=== PATIENT | male | born 1965 | race Caucasian/White ===

== ENCOUNTER 2017-09-30 11:04 | Emergency (ER) | payer MEDICAID ==
[2017-09-30 12:07] LABS: BASO % 0.8 % (0.0-2.0); EOS # 0.1 K/uL (0.0-0.7); EOS % 2.4 % (0.0-4.0); HEMOGLOBIN 17.2 g/dL (12.0-18.0); LYMPH % 41.3 % (20.0-40.0); MEAN CORPUSCULAR HEMOGLOBIN 31.1 pg (27.0-31.0); MEAN CORPUSCULAR HGB CONC 34.6 g/dL (33.0-37.0); MEAN PLATELET VOLUME 9.5 fL (7.2-11.7); MONO # 0.4 K/uL (0.0-0.8); MONO % 7.8 % (0.0-10.0); NEUT # 2.3 K/uL (1.8-7.0); NEUT % 47.7 % (50.0-75.0); NRBC % 0.2 % (0.0-2.0); RBC 5.53 Mil/uL (4.40-5.90); RED CELL DISTRIBUTION WIDTH 14.6 % (11.5-14.5); WHITE BLOOD COUNT 4.9 K/uL (4.8-10.8)
[2017-09-30 12:20] LABS: ALB/GLOB RATIO 1.1 (1.0-2.1); ALBUMIN 3.9 g/dL (3.5-5.0); ALT/SGPT 37 U/L (21-72); AMYLASE 85 U/L (30-110); AST/SGOT 21 U/L (17-59); BLOOD UREA NITROGEN 11 mg/dL (9-20); CALCIUM 11.8 mg/dl (8.6-10.4); GFR AFRICAN-AMERICAN > 60; GFR NON-AFRICAN AMERICAN > 60
[2017-09-30 12:27] LABS: URINE BILIRUBIN NEGATIVE (NEGATIVE); URINE BLOOD 1+ (NEGATIVE); URINE CLARITY Clear (Clear); URINE COLOR Straw (YELLOW); URINE GLUCOSE (UA) NORMAL (Normal); URINE LEUKOCYTE ESTERASE NEG Leu/uL (Negative); URINE PROTEIN NEGATIVE (NEGATIVE); URINE UROBILINOGEN NORMAL mg/dL (0.2-1.0)
--- NOTE | 2017-09-30 13:05 | C.PDOC ---
History Of Present Illness 52-year-old male, presents to the emergency department with complaints of right sided back pain for the past month. Patient states that he has a Hx of kidney stones with lithotripsy last year and stent. States he went to see Dr Samaniego last week and was told to come in for further evaluation. Pt had CT 2 months ago , showing multiple small calculi b/l. Denies hematuria, dysuria, abdominal pain , n/v, rash, fever, chest pain or any other associated symptoms. 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[employer]) History/Exam Limitations: no limitations Current Symptoms Are (Timing): Still Present Severity: Moderate Past Medical History Reviewed: Historical Data, Nursing Documentation, Vital Signs Vital Signs: Last Vital Signs Temp 97.8 F 09/30/17 13:07 Pulse 60 09/30/17 13:07 Resp 18 09/30/17 13:07 BP 145/89 09/30/17 13:07 Pulse Ox 100 09/30/17 13:50 - Medical History PMH: HTN, Kidney Stones, Chronic Kidney Disease Family History: States: No Known Family Hx - Social History Hx Tobacco Use: No Hx Alcohol Use: No Hx Substance Use: No - Immunization History Hx Tetanus Toxoid Vaccination: No Hx Influenza Vaccination: No Hx Pneumococcal Vaccination: No Review Of Systems Constitutional: Negative for: Fever Respiratory: Negative for: Shortness of Breath Gastrointestinal: Negative for: Vomiting Genitourinary: Negative for: Dysuria, Hematuria, Penile Discharge, Rash Musculoskeletal: Positive for: Back Pain Skin: Negative for: Rash Neurological: Negative for: Weakness Physical Exam - Physical Exam Appears: Non-toxic, No Acute Distress Skin: Normal Color, Warm, Dry, No Rash Head: Atraumatic, Normacephalic Eye(s): bilateral: Normal Inspection, EOMI Nose: Normal Oral Mucosa: Moist Neck: Normal ROM, Supple Chest: Symmetrical Cardiovascular: Rhythm Regular Respiratory: Normal Breath Sounds, No Accessory Muscle Use Gastrointestinal/Abdominal: Soft, No Tenderness, No Guarding, No Rebound Back: No Vertebral Tenderness, Paraspinal Tenderness ((+) left paralumbar tenderness) Extremity: Normal ROM, No Deformity, No Swelling Neurological/Psych: Oriented x3, Normal Speech ED Course And Treatment - Laboratory Results Result Diagrams: 09/30/17 12:04 09/30/17 12:04 O2 Sat by Pulse Oximetry: 100 (RA) Pulse Ox Interpretation: Normal Progress Note: Pt refused pain medication. Bloodwork, urine culture and UA ordered and reviewed. Pt evaluated by Dr Samaniego at bedside in ED, agrees upon discharge for follow-up outpatient. Disposition - Disposition Referrals: Prince Samaniego MD [Staff Provider] - Disposition: HOME/ ROUTINE Disposition Time: 13:04 Condition: STABLE Additional Instructions: Follow up with Dr Samaniego as scheduled. Instructions: Renal Colic (DC) Forms: [place] (Mal[place]ian) - Clinical Impression Clinical Impression: Renal colic - Scribe Statement The provider has reviewed the documentation as recorded by the Scribe (Pati Hayes) All medical record entries made by the Scribe were at my direction and personally dictated by me. I have reviewed the chart and agree that the record accurately reflects my personal performance of the history, physical exam, medical decision making, and the department course for this patient. I have also personally directed, reviewed, and agree with the discharge instructions and disposition.
[2017-09-30 13:08] VITALS: BP 145/89; PULSE 60; RESP 18; TEMP 97.8
[2017-09-30 13:13] VITALS: O2SAT 100
--- NOTE | 2017-10-01 20:53 | CON ---
DATE: 09/30/2017 REASON FOR CONSULTATION: Voiding dysfunction, gross hematuria and renal colic and kidney stone disease. HISTORY OF PRESENT ILLNESS: History is from the chart and from the patient. He is 52 years old. He has a history of stone disease and he is here now in the emergency room with hematuria and flank pain. He has a history of stone disease and now he has gross hematuria, comes to the ER. At this point, actually when I am seeing him he is already feeling a little bit better and see the plans. We are going to discharge him home and make arrangements to followup. He needs evaluation with the cystoscope. He needs evaluation with upper tract imaging. He does have a previous CT scan from a couple of months back. See the report that is already there. PAST MEDICAL HISTORY: As listed on the chart. PAST SURGICAL HISTORY: As listed on the chart. REVIEW OF SYSTEMS: As listed above, otherwise noncontributory. PHYSICAL EXAMINATION: HEENT: A well-nourished male in no apparent distress. VITAL SIGNS: Within normal limits. ABDOMEN: Soft, nontender, no flank pain appreciated. discharge. No testicular masses appreciated. DIAGNOSES: Gross urolithiasis and gross hematuria. ASSESSMENT AND PLAN: We discussed the option with the patient. Whatever brought him to the hospital is now resolved. What we would like to recommend is that the patient have some outpatient followup. We will arrange for a cystoscope and then further plans will follow. I explained this to the patient in great detail. He asked my phone number to call me if he has any further questions. We will try the telecommunications engineer in the ER, the phone telecommunications engineer working with the patient. Ten Samaniego MD
== END 2017-09-30 13:07 | disposition home or self-care (01) ==
LOC: C.ER 11:04
DX: N23 Unspecified renal colic (principal); I12.9 Hypertensive chronic kidney disease with stage 1 through stage 4 chronic kidney disease, or unspecified chronic kidney disease; N18.9 Chronic kidney disease, unspecified

== ENCOUNTER 2018-08-14 22:36 | Observation (INO) | payer MEDICAID ==
[2018-08-14] MEDS ORDERED: Sodium Chloride 0.9% 1,000 ML IV STA (22:55)
[2018-08-14] MEDS ORDERED: Hydrocodone/Acetaminophen 5 mg /300 mg Tab PO STA (22:55)
--- NOTE | 2018-08-15 01:14 | C.PDOC ---
History Of Present Illness 53-year-old male presents to the ED for evaluation of left-sided flank pain which began yesterday and has increasingly worsened. Patient reports a history of renal stones and takes Flomax as prescribed by his doctor. Patient reports his current symptoms feel similar to when he had kidney stones in the past. Patient denies painful urination or blood in urine. Time Seen by Provider: 08/14/18 22:53 Chief Complaint (Nursing): Male Genitourinary History Per: Patient History/Exam Limitations: no limitations Onset/Duration Of Symptoms: Hrs Current Symptoms Are (Timing): Worse Quality Of Discomfort: "Pain" Additional History Per: Patient Past Medical History Reviewed: Historical Data, Nursing Documentation, Vital Signs Vital Signs: Last Vital Signs Temp 97.4 F L 08/14/18 22:45 Pulse 72 08/14/18 22:45 Resp 20 08/14/18 22:45 BP 171/78 H 08/14/18 22:45 Pulse Ox 98 08/14/18 22:45 - Medical History PMH: Benign Prostatic Hyperplasia, Gall Bladder Disease (+ biliary colic), HTN, Kidney Stones, Chronic Kidney Disease Surgical History: No Surg Hx - [facility] Procedures RESECTION OF GALLBLADDER, PERCUTANEOUS ENDOSCOPIC APPROACH (01/24/18) Family History: States: Unknown Family Hx - Social History Hx Tobacco Use: No Hx Alcohol Use: No Hx Substance Use: No - Immunization History Hx Tetanus Toxoid Vaccination: No Hx Influenza Vaccination: No Hx Pneumococcal Vaccination: No Review Of Systems Constitutional: Negative for: Fever, Chills, Weakness Gastrointestinal: Negative for: Nausea, Vomiting, Diarrhea Genitourinary: Negative for: Dysuria, Hematuria Musculoskeletal: Positive for: Other (left flank pain ) Skin: Negative for: Rash Neurological: Negative for: Weakness, Numbness, Dizziness Physical Exam - Physical Exam Appears: Well, Non-toxic, No Acute Distress, Other (uncomfortable ) Skin: Normal Color, Warm, No Rash Chest: Symmetrical, No Deformity Cardiovascular: Rhythm Regular Respiratory: No Accessory Muscle Use, Other (normal inspiratory effort ) Gastrointestinal/Abdominal: Soft, No Tenderness, No Guarding, No Rebound Back: CVA Tenderness (left-sided ), Other (left flank tenderness ) Neurological/Psych: Oriented x3, Normal Cranial Nerves (grossly intact ) ED Course And Treatment - Laboratory Results Result Diagrams: 08/15/18 03:43 O2 Sat by Pulse Oximetry: 98 (on RA) Pulse Ox Interpretation: Normal - CT Scan/US CT A/P Other Rad Studies (CT/US): Read By Radiologist, Radiology Report Reviewed CT/US Interpretation: CT SCAN OF THE ABDOMEN AND PELVIS WITHOUT ORAL OR IV CONTRAST. CLINICAL INDICATION: Left flank pain. TECHNIQUE: Axial and reformatted sagittal and coronal images of the abdomen pelvis obtained without IV contrast administration. COMPARISON: None. FINDINGS: Bilateral basilar hypoventilatory pulmonary changes. Mild cardiomegaly. Moderate prostatomegaly. Scattered prostatic calcifications are noted. Fat containing left inguinal hernia without incarceration. Cholecystectomy. Uncomplicated colonic diverticulosis. Right renal nonobstructing stones with the largest measuring 4 mm. 3 stones are noted in the mid and distal thirds of the left ureter the largest measuring 6.2 mm. Moderate left hydroureteronephrosis. Normal unenhanced liver. Normal extrahepatic biliary system. Normal unenhanced spleen. Normal pancreas. . Normal bilateral adrenal glands. Normal size of the right kidney. There is no right renal mass. There is no right hydronephros is. Normal visualized right ureter. Normal size of the left kidney. There is no left renal mass. Normal visualized stomach. Normal small intestine. The appendix is visualized and appears normal. There is no demonstrated peritoneal fluid. Normal abdominal aorta. Normal inferior vena cava. Normal retroperitoneum. . Normal urinary bladder. There is no pelvic mass lesion or lymphadenopathy. There is no pelvic fluid. . Normal abdominal wall. Normal osseous structures. IMPRESSION: Obstructing left ureteral stones. Medical Decision Making Medical Decision Making: Progress: CT A/P ordered and reviewed. Patient given Morphine IVP, Vicodin PO, Toradol IM and IV Fluids. CT scan shows 3 ureter stones on left side. after consulting with Dr. Prince Samaniego, he request the patient be admitted to medicine and he will consult on the patient. patient's pain has been controlled at this time. Disposition Counseled Patient/Family Regarding: Diagnosis, Need For Followup - Disposition Disposition: HOSPITALIZED Disposition Time: 04:08 Condition: STABLE - Clinical Impression Clinical Impression: Hydronephrosis with obstructing calculus - PA / MANAGER RISK / Resident Statement MD/DO has reviewed & agrees with the documentation as recorded. - Scribe Statement The provider has reviewed the documentation as recorded by the Scribe (Alejandra Harper) All medical record entries made by the Scribe were at my direction and personally dictated by me. I have reviewed the chart and agree that the record accurately reflects my personal performance of the history, physical exam, medical decision making, and the department course for this patient. I have also personally directed, reviewed, and agree with the discharge instructions and disposition. Decision To Admit - Pt Status Changed To: Hospital Disposition Of: Observation - . Bed Request Type: Regular Admitting Physician: Justa Hilliard Patient Diagnosis: Hydronephrosis with obstructing calculus
[2018-08-15 03:48] LABS: BASO # 0.1 K/uL (0.0-0.2); BASO % 1.1 % (0.0-2.0); EOS # 0.2 K/uL (0.0-0.7); EOS % 2.6 % (0.0-4.0); HEMOGLOBIN 17.1 g/dL (12.0-18.0); LYMPH # 2.6 K/uL (1.0-4.3); LYMPH % 43.7 % (20.0-40.0); MEAN CELL VOLUME 91.5 fL (80.0-94.0); MEAN CORPUSCULAR HGB CONC 33.9 g/dL (33.0-37.0); MEAN PLATELET VOLUME 10.1 fL (7.2-11.7); MONO # 0.6 K/uL (0.0-0.8); MONO % 10.4 % (0.0-10.0); NEUT # 2.5 K/uL (1.8-7.0); NEUT % 42.2 % (50.0-75.0); RBC 5.53 Mil/uL (4.40-5.90); RED CELL DISTRIBUTION WIDTH 14.3 % (11.5-14.5)
[2018-08-15 04:28] LABS: BLOOD UREA NITROGEN 21 mg/dL (9-20); GFR NON-AFRICAN AMERICAN > 60
[2018-08-15 05:13] VITALS: RESP 20
[2018-08-15] MEDS: Sodium Chloride 0.9% 1,000 ML IV SCH ×2 (08:54→18:34)
--- NOTE | 2018-08-15 11:36 | CT ---
PROCEDURE: CT Abdomen and Pelvis without Oral or IV contrast. HISTORY: renal obstruction COMPARISON: CT abdomen and pelvis with IV contrast performed 01/24/18 TECHNIQUE: Contiguous axial images of the abdomen and pelvis. No oral or IV contrast administered. Coronal and Sagittal reformats generated and reviewed. Radiation dose: Total exam DLP = 442.14 mGy-cm. This CT exam was performed using one or more of the following dose reduction techniques: Automated exposure control, adjustment of the mA and/or kV according to patient size, and/or use of iterative reconstruction technique. FINDINGS: There is limited evaluation of the solid organs without the administration of IV contrast. LOWER THORAX: Bibasilar atelectasis. There is no visible pleural effusion or pneumothorax. Small hiatal hernia/distal esophageal wall thickening. LIVER: Hepatomegaly. GALLBLADDER AND BILE DUCTS: Cholecystectomy. PANCREAS: Unremarkable unenhanced appearance. SPLEEN: Unremarkable unenhanced appearance. ADRENALS: Bilateral adrenal gland hypertrophy. KIDNEYS AND URETERS: Left-sided hydroureteronephrosis with renal calculus measuring 4 mm, proximal ureteral calculus measuring 9 mm, and mid to distal left ureter measuring 8 mm. Associated perinephric/periureteral stranding. Punctate nonobstructing right renal calculi without hydronephrosis or hydroureter. 9 mm too small to characterize exophytic right renal hypodensity, possibly cyst. BLADDER: The urinary bladder appears unremarkable. REPRODUCTIVE: Enlarged heterogeneous prostate gland measures approximately 4.9 x 5.6 x 5.0 cm (AP by transverse by CC dimensions. Prostate calcifications noted. APPENDIX: The appendix appears within normal limits of caliber. No secondary signs of acute appendicitis. BOWEL: The stomach is nondistended. Lack of oral contrast limits evaluation for bowel pathology. The bowel loops appear within normal limits of caliber without evidence of intestinal obstruction. Diverticulosis without CT evidence of acute diverticulitis. PERITONEUM: No significant free fluid. No definite free air. LYMPH NODES: No bulky lymphadenopathy identified. VASCULATURE: No significant atherosclerotic calcifications. No aortic aneurysm. BONES: Degenerative changes of the spine. OTHER FINDINGS: Bilateral efgi-bvtpirf-igul-right fat containing inguinal hernias. IMPRESSION: Left-sided hydroureteronephrosis with renal calculus measuring 4 mm, proximal ureteral calculus measuring 9 mm, and mid to distal left ureter measuring 8 mm. Associated perinephric/periureteral stranding. Punctate nonobstructing right renal calculi without hydronephrosis or hydroureter. 9 mm too small to characterize exophytic right renal hypodensity, possibly cyst. Bilateral adrenal gland hypertrophy. Hepatomegaly. Bibasilar atelectasis. Small hiatal hernia/distal esophageal wall thickening. Diverticulosis without CT evidence of acute diverticulitis. Bilateral left greater than right fat containing inguinal hernias. Markedly enlarged heterogeneous prostate gland. Recommend correlation with PSA. Additional findings as above. Preliminary impression was provided by [employer].
[2018-08-15 14:48] LABS: SQUAMOUS EPITHIAL 1 /hpf (0-5); URINE BILIRUBIN NEGATIVE (NEGATIVE); URINE BLOOD 3+ (NEGATIVE); URINE CALCIUM OXALATE CRYSTALS FEW /hpf (<OCC); URINE CLARITY Hazy (Clear); URINE COLOR Yellow (YELLOW); URINE GLUCOSE (UA) NORMAL (Normal); URINE LEUKOCYTE ESTERASE NEG Leu/uL (Negative); URINE PROTEIN NEGATIVE (NEGATIVE); URINE UROBILINOGEN NORMAL mg/dL (0.2-1.0)
--- NOTE | 2018-08-15 17:05 | CP.PCM.HP ---
History of Present Illness - History of Present Illness History of Present Illness: pt has renal colic renal stone came for treatment Present on Admission - Present on Admission Any Indicators Present on Admission: No Review of Systems - Review of Systems Systems not reviewed;Unavailable: Acuity of Condition - Constitutional Constitutional: Weakness - EENT Eyes: Floaters Ears: As Per HPI Nose/Mouth/Throat: As Per HPI - Cardiovascular Cardiovascular: As Per HPI - Respiratory Respiratory: As Per HPI - Gastrointestinal Gastrointestinal: Abdominal Pain, Bloating - Genitourinary Genitourinary: Change in Urinary Stream, Dysuria, Flank Pain - Reproductive: Male Reproductive:Male: As Per HPI - Musculoskeletal Musculoskeletal: As Per HPI - Integumentary Integumentary: As Per HPI - Neurological Neurological: As Per HPI - Psychiatric Psychiatric: As Per HPI - Endocrine Endocrine: As Per HPI - Hematologic/Lymphatic Hematologic: As Per HPI Past Patient History - Past Medical History & Family History Past Medical History?: Yes - Past Social History Smoking Status: Light Smoker < 10 Cigarettes Daily - CARDIAC Hx Hypertension: Yes - PULMONARY Hx Respiratory Disorders: No - NEUROLOGICAL Hx Neurological Disorder: No - HEENT Hx HEENT Problems: No - RENAL Hx Chronic Kidney Disease: Yes Hx Kidney Stones: Yes - ENDOCRINE/METABOLIC Hx Endocrine Disorders: No - HEMATOLOGICAL/ONCOLOGICAL Hx Blood Disorders: No - INTEGUMENTARY Hx Dermatological Problems: No - MUSCULOSKELETAL/RHEUMATOLOGICAL Hx Falls: No - GASTROINTESTINAL Hx Gall Bladder Disease: Yes (+ biliary colic) - GENITOURINARY/GYNECOLOGICAL Hx Genitourinary Disorders: Yes Hx Bladder Stone: Yes - PSYCHIATRIC Hx Substance Use: No - SURGICAL HISTORY Hx Surgeries: No Other/Comment: "procedure in [place]" - ANESTHESIA Hx Anesthesia: Yes Hx Anesthesia Reactions: No Hx Malignant Hyperthermia: No Meds Allergies/Adverse Reactions: Allergies Allergy/AdvReac Type Severity Reaction Status Date / Time No Known Allergies Allergy Verified 09/30/17 11:09 Physical Exam - Constitutional Appears: In Acute Distress - Eye Exam Eye Exam: Normal appearance Pupil Exam: NORMAL ACCOMODATION - ENT Exam ENT Exam: Mucous Membranes Moist - Neck Exam Neck exam: Positive for: Normal Inspection - Respiratory Exam Respiratory Exam: Clear to Auscultation Bilateral - Cardiovascular Exam Cardiovascular Exam: REGULAR RHYTHM - GI/Abdominal Exam GI & Abdominal Exam: Normal Bowel Sounds, Tenderness Additional comments: l flank area - Exam Exam: NORMAL INSPECTION - Extremities Exam Extremities exam: Positive for: normal inspection - Back Exam Back exam: NORMAL INSPECTION - Neurological Exam Neurological exam: Alert, Normal Gait, Oriented x3 - Psychiatric Exam Psychiatric exam: Normal Affect - Skin Skin Exam: Pallor Results - Vital Signs Recent Vital Signs: Last Vital Signs Temp 97.4 F L 08/15/18 07:52 Pulse 60 08/15/18 07:52 Resp 20 08/15/18 07:52 BP 145/88 08/15/18 07:52 Pulse Ox 97 08/15/18 13:00 - Labs Result Diagrams: 08/15/18 03:43 08/15/18 04:10 Labs: Laboratory Results - last 24 hr 08/15/18 08/15/18 08/15/18 03:43 04:10 14:35 WBC 6.0 RBC 5.53 Hgb 17.1 Hct 50.6 MCV 91.5 MCH 31.0 MCHC 33.9 RDW 14.3 Plt Count 139 MPV 10.1 Neut % (Auto) 42.2 L Lymph % (Auto) 43.7 H [place] % (Auto) 10.4 H Eos % (Auto) 2.6 Baso % (Auto) 1.1 Neut # (Auto) 2.5 Lymph # (Auto) 2.6 [place] # (Auto) 0.6 Eos # (Auto) 0.2 Baso # (Auto) 0.1 Sodium 134 Potassium 3.7 Chloride 107 Carbon Dioxide 23 Anion Gap 7 L BUN 21 H Creatinine 1.1 Est GFR ( Amer) > 60 Est GFR (Non-Af Amer) > 60 Random Glucose 121 H Calcium 11.0 H Urine Color Yellow Urine Clarity Hazy Urine pH 5.0 Ur Specific [place] 1.019 Urine Protein Negative Urine Glucose (UA) Normal Urine Ketones Negative Urine Blood 3+ H Urine Nitrate Negative Urine Bilirubin Negative Urine Urobilinogen Normal Ur Leukocyte Esterase Neg Urine WBC (Auto) 1 Urine RBC (Auto) 398 H Ur Squamous Epith Cells 1 Calcium Oxalate Crystal Few H Assessment & Plan - Assessment and Plan (Free Text) Assessment: ac renal colic kidney and uretral stons hematurea Plan: tretment urology cons - Date & Time Date: 08/15/18 Time: 17:07
[2018-08-15 18:15] VITALS: BP 126/73; PULSE 62; TEMP 97.3; O2SAT 96
== END 2018-08-15 21:22 | disposition left against medical advice (07) ==
LOC: C.ER 22:36 → C.3T 08-15 04:32
PROVIDERS: ADMIT Internal Medicine; ATTEND Internal Medicine
DX: N13.2 Hydronephrosis with renal and ureteral calculous obstruction (principal); N18.9 Chronic kidney disease, unspecified; I12.9 Hypertensive chronic kidney disease with stage 1 through stage 4 chronic kidney disease, or unspecified chronic kidney disease; N40.0 Benign prostatic hyperplasia without lower urinary tract symptoms; Z87.442 Personal history of urinary calculi; F17.210 Nicotine dependence, cigarettes, uncomplicated
CPT/HCPCS: 74176; 80048; 81001; 84153; 84154; 85025; 87086; 93005; 96361; 96372; 96374; 96376; 99285; G0378; J1885; J2270; J7030; J7040